=== PATIENT | male | born 2005 | race Two or more races ===

== ENCOUNTER 2025-02-27 18:21 | Emergency (ER) | payer OTHER ==
[~2025-02-27] VITALS: Ht 165.1 cm; Wt 56.9 kg
[2025-02-27] MEDS: IBUPROFEN 600 MG TAB PO ONE (20:39)
[2025-02-27 20:45] VITALS: BP 132/83; TEMP 97.3; O2SAT 100
== END 2025-02-27 20:46 | disposition home or self-care (01) ==
LOC: M ED 18:21
DX: S60.221A Contusion of right hand, initial encounter (principal); W22.09XA Striking against other stationary object, initial encounter; Y92.009 Unspecified place in unspecified non-institutional (private) residence as the place of occurrence of the external cause; Y93.89 Activity, other specified; Y99.9 Unspecified external cause status